=== PATIENT | female | born 1985 | race Caucasian/White ===

== ENCOUNTER 2017-07-02 20:03 | Emergency (ER) | payer BC, MEDICAID ==
[2017-07-02] MEDS ORDERED: BUPIVACAINE HCL 0.5 % INJ/PF 30 ML SDV INJ ONE (21:32)
[2017-07-02] MEDS ORDERED: LIDOCAINE 1% INJ (10 MG/ML) 10 ML MDV INJ ONE (21:34)
[2017-07-02] MEDS ORDERED: PENICILLIN V POTASSIUM 500 MG TABLET PO ONE (21:36)
[2017-07-02] MEDS ORDERED: HYDROCODONE/ACETAMINOPHEN 5-325 MG (6 TAB/ER DISP) PO PRN (22:08)
--- NOTE | 2017-07-02 22:14 | ER Document Report ---
HPI - HPI Onset: This afternoon Onset/Duration: Persistent Quality of pain: Throbbing Severity: Severe Pain Level: 5 Notes: Patient is a 32-year-old female who presents to the emergency department with complaint of toothache. Patient states that the pain on her right lower jaw at her last tooth. Patient reports that this pain started this afternoon. Patient denies any other symptoms such as fever chills. Patient denies any significant past medical history. Patient does report that she has had lots of dental caries in the past and has had several teeth removed due to all of the caries. - CONSTITUTIONAL Constitutional: DENIES: Fever, Chills - REPRODUCTIVE LMP: 07/01/2017 Reproductive: DENIES: : Past Medical History - General Information source: Patient - Social History Smoking Status: Unknown if Ever Smoked Family History: Reviewed & Not Pertinent Patient has suicidal ideation: No Patient has homicidal ideation: No - Past Medical History Cardiac Medical History: Reports: Hx Hypertension Denies: Hx Coronary Artery Disease Pulmonary Medical History: Denies: Hx Asthma Endocrine Medical History: Denies: Hx Diabetes Mellitus Type 1, Hx Diabetes Mellitus Type 2 Renal/ Medical History: Denies: Hx Peritoneal Dialysis Past Surgical History: Reports: Hx Adenoidectomy, Hx Tonsillectomy, Hx Tubal Ligation - 2007 - Immunizations Hx Diphtheria, Pertussis, Tetanus Vaccination: Yes Vertical Provider Document - INFECTION CONTROL TRAVEL OUTSIDE OF THE [place] IN LAST 30 DAYS: No Course - Re-evaluation Re-evalutation: Alveolar dental block was performed using 1.5 mL's of 0.5% Marcaine and 1.5 mL' s of 1% lidocaine. Patient tolerated the procedure well. Patient will be started on oral antibiotics, will give some medications for pain control, patient states that she has adequate follow-up with a dentist and can make an appointment next week for possible extraction of the affected tooth. - Vital Signs Vital signs: Temp Pulse Resp BP Pulse Ox 99.1 F 64 16 150/96 H 99 07/02/17 20:23 07/02/17 20:23 07/02/17 20:23 07/02/17 20:23 07/02/17 20:23 Discharge - Discharge Clinical Impression: Tooth ache Condition: Stable Disposition: HOME, SELF-CARE Instructions: Penicillin V K ([facility]), Toothache ([facility]) Prescriptions: Penicillin V Potassium [Penicillin Vk 500 mg Tablet] 500 mg PO BID #20 tablet Referrals: FABIAN CANCHOLA, LASER CUTTER-C [Primary Care Provider] - Follow up as needed
[2017-07-02 22:26] VITALS: BP 136/93
== END 2017-07-02 22:26 | disposition home or self-care (01) ==
LOC: ER 20:03
PROC: 3E0T3BZ Introduction of Anesthetic Agent into Peripheral Nerves and Plexi, Percutaneous Approach (ICD-10-PCS; principal; 2017-07-02)
DX: K08.9 Disorder of teeth and supporting structures, unspecified (principal); I10 Essential (primary) hypertension
CPT/HCPCS: 99282

== ENCOUNTER 2017-07-04 00:12 | Emergency (ER) | payer BC ==
[2017-07-04 01:25] VITALS: BP 176/97
[2017-07-04] MEDS ORDERED: OXYCODONE-ACETAMINOPHEN 5-325 MG TABLET PO ONE (02:28)
[2017-07-04] MEDS ORDERED: CLINDAMYCIN HCL 150 MG CAPSULE PO ONE (02:29)
--- NOTE | 2017-07-04 02:36 | ER Document Report ---
HPI - HPI Pain Level: 5 Notes: Patient presents to emergency department with complaint of right lower tooth pain. Patient was seen in this department 24 hours ago with same complaint. Patient was given alveolar dental block with minimal relief. Patient was also started on penicillin. Patient states that she is continuing to have a throbbing pain. Patient reports that she will not be able to get into see a dentist for a few days. Patient also reports that she has taken 2 doses of her. - ROS ROS below otherwise negative: Yes - CONSTITUTIONAL Constitutional: DENIES: Fever, Chills - EENT EENT: DENIES: Sore Throat, Ear Pain, Eye problems - NEURO Neurology: DENIES: Headache, Weakness, Vision blurred, Dizzinesss / Vertigo - CARDIOVASCULAR Cardiovascular: DENIES: Chest pain - RESPIRATORY Respiratory: DENIES: Trouble Breathing, Coughing - GASTROINTESTINAL Gastrointestinal: DENIES: Abdominal Pain, Black / Bloody Stools - URINARY Urinary: DENIES: Dysuria, Urgency, Frequency - REPRODUCTIVE Reproductive: DENIES: : - MUSCULOSKELETAL Musculoskeletal: DENIES: Extremity pain Past Medical History - General Information source: Patient - Social History Smoking Status: Unknown if Ever Smoked Family History: Reviewed & Not Pertinent Patient has suicidal ideation: No Patient has homicidal ideation: No - Past Medical History Cardiac Medical History: Reports: Hx Hypertension Denies: Hx Coronary Artery Disease Pulmonary Medical History: Denies: Hx Asthma Endocrine Medical History: Denies: Hx Diabetes Mellitus Type 1, Hx Diabetes Mellitus Type 2 Renal/ Medical History: Denies: Hx Peritoneal Dialysis Past Surgical History: Reports: Hx Adenoidectomy, Hx Tonsillectomy, Hx Tubal Ligation - Immunizations Hx Diphtheria, Pertussis, Tetanus Vaccination: Yes Vertical Provider Document - CONSTITUTIONAL Exam Limitations: No Limitations - INFECTION CONTROL TRAVEL OUTSIDE OF THE [place] IN LAST 30 DAYS: No - NECK Neck: Normal Inspection - RESPIRATORY Respiratory: Breath Sounds Normal - CARDIOVASCULAR Cardiovascular: Regular Rate, Regular Rhythm - MUSCULOSKELETAL/EXTREMETIES Musculoskeletal/Extremeties: MAEW - NEURO Level of Consciousness: Awake, Alert Course - Re-evaluation Re-evalutation: Patient will be given single dose of pain medication while in department. Will start patient on clindamycin. Patient given information dental providers in the area as well as the new dental urgent care in [place]. Patient understands that ultimately she needs to follow-up with a dentist to probably have an extraction of the affected tooth. It does not appear to be any drainable abscess at this time. - Vital Signs Vital signs: Temp Pulse Resp BP Pulse Ox 98.7 F 69 20 176/97 H 97 07/04/17 01:24 07/04/17 01:24 07/04/17 01:24 07/04/17 01:24 07/04/17 01:24 Discharge - Discharge Clinical Impression: Pain due to dental caries Condition: Stable Disposition: HOME, SELF-CARE Instructions: [facility], Clindamycin ([facility]), Toothache ([facility]) Additional Instructions: Toothache Your pain is due to dental decay. The tooth must be repaired in order for you to feel better. You will, therefore, be referred to a dentist. Severe swelling or drainage around a tooth usually means a deep dental abscess. This also requires evaluation and treatment by the dentist, but antibiotics may be prescribed while awaiting dental treatment. You should be rechecked immediately if you develop major swelling of the face, increasing pain, a lump in the jaw or gums, headache, or fever. Please follow up with your dentist Wednesday morning. There is a new Urgent Dental Care in [place] that may be available as well. Prescriptions: Clindamycin HCl 300 mg PO BID #14 capsule Referrals: FABIAN CANCHOLA, ENVIRONMENTAL ENGINEER-C [Primary Care Provider] - Follow up as needed
== END 2017-07-04 02:53 | disposition home or self-care (01) ==
LOC: ER 00:12
DX: K08.89 Other specified disorders of teeth and supporting structures (principal); K02.9 Dental caries, unspecified; I10 Essential (primary) hypertension
CPT/HCPCS: 99282

== ENCOUNTER 2017-09-07 19:30 | Emergency (ER) | payer SELFPAY ==
[2017-09-07 19:59] VITALS: BP 134/74
[2017-09-07] MEDS ORDERED: CIPROFLOXACIN-HC OTIC SUSP 10 ML AD ONE (22:02)
--- NOTE | 2017-09-07 22:08 | ER Document Report ---
ED ENT - General Chief Complaint: R ear pain Stated Complaint: EAR PAIN Time Seen by Provider: 09/07/17 22:01 Mode of Arrival: Ambulatory Information source: Patient Notes: Patient is a 32 year female who presents with right ear pain 2-3 days. Patient reports that she has been in a swimming pool frequently over the last few weeks. Patient denies any drainage from the ear. TRAVEL OUTSIDE OF THE [place] IN LAST 30 DAYS: No - Related Data Allergies/Adverse Reactions: No Known Allergies Allergy (Verified 07/02/17 21:14) Past Medical History - General Information source: Patient - Social History Smoking Status: Never Smoker Chew tobacco use (# tins/day): No Frequency of alcohol use: None Drug Abuse: None Family History: Reviewed & Not Pertinent Patient has suicidal ideation: No Patient has homicidal ideation: No - Past Medical History Cardiac Medical History: Reports: Hx Hypertension Denies: Hx Coronary Artery Disease Pulmonary Medical History: Denies: Hx Asthma Endocrine Medical History: Denies: Hx Diabetes Mellitus Type 1, Hx Diabetes Mellitus Type 2 Renal/ Medical History: Denies: Hx Peritoneal Dialysis Past Surgical History: Reports: Hx Adenoidectomy, Hx Tonsillectomy, Hx Tubal Ligation - Immunizations Hx Diphtheria, Pertussis, Tetanus Vaccination: Yes Review of Systems - Review of Systems Constitutional: No symptoms reported EENT: See HPI Cardiovascular: No symptoms reported Respiratory: No symptoms reported Gastrointestinal: No symptoms reported Genitourinary: No symptoms reported Female Genitourinary: No symptoms reported Musculoskeletal: No symptoms reported Skin: No symptoms reported Hematologic/Lymphatic: No symptoms reported Neurological/Psychological: No symptoms reported Physical Exam - Vital signs Vitals: Temp Pulse Resp BP Pulse Ox 98.7 F 71 20 134/74 H 100 09/07/17 19:57 09/07/17 19:57 09/07/17 19:57 09/07/17 19:57 09/07/17 19:57 - Notes Notes: PHYSICAL EXAMINATION: GENERAL: Well-appearing, well-nourished and in no acute distress. HEAD: Atraumatic, normocephalic. EYES: Pupils equal round and reactive to light, extraocular movements intact, conjunctiva are normal. ENT: Nares patent, oropharynx clear without exudates. Moist mucous membranes. Swelling and erythema to right ear canal, TM normal. Left ear canal and TM unremarkable. NECK: Normal range of motion, supple without lymphadenopathy LUNGS: Breath sounds clear to auscultation bilaterally and equal. No wheezes rales or rhonchi. HEART: Regular rate and rhythm without murmurs Musculoskeletal: Normal range of motion, no pitting or edema. No cyanosis. NEUROLOGICAL: Cranial nerves grossly intact. Normal speech, normal gait. Normal sensory, motor exams PSYCH: Normal mood, normal affect. SKIN: Warm, Dry, normal turgor, no rashes or lesions noted. Course - Re-evaluation Re-evalutation: 32-year-old female patient presenting with chief complaint of right ear pain and no other symptoms. Patient's examination is consistent with otitis externa. Will start patient on Ciprodex. - Vital Signs Vital signs: Temp Pulse Resp BP Pulse Ox 98.7 F 71 20 134/74 H 100 09/07/17 19:57 09/07/17 19:57 09/07/17 19:57 09/07/17 19:57 09/07/17 19:57 Discharge - Discharge Clinical Impression: Otitis externa Qualifiers: Otitis externa type: unspecified type Chronicity: acute Laterality: right Qualified Code(s): H60.501 - Unspecified acute noninfective otitis externa, right ear Condition: Stable Disposition: HOME, SELF-CARE Additional Instructions: Otitis Externa You have otitis externa -- an infection of the outer ear canal. This can be very painful. It's sometimes called "swimmer's ear," because it often occurs after prolonged water exposure. Many things, such as earwax and dirt in the ear, can contribute to it. The usual treatment is antibiotic/antiinflammatory ear drops. Occasionally , a wick will be placed in the ear to draw in the medicine. If the infection is severe, an oral antibiotic may be prescribed. Pain medication is often needed. Avoid getting water in the ear. Outer ear infections often take longer to heal than you might expect. Some tenderness and ache in the ear may persist for about two weeks. See your physician if you fail to improve as expected. Call the doctor at once if you develop fever, increasing swelling (particularly if it makes your ear "poke out"), severe headache, stiff neck, or decreased hearing. Please take the Ciprodex as prescribed. Place 4 drops into the affected ear twice daily for the next 10 days. Please follow-up with your primary care doctor if not improving. Prescriptions: Ciprofloxacin HCl/Dexameth [Ciprodex Otic Suspension 7.5 ml Bottle] 4 drop OT BID #1 bottle Referrals: FABIAN CANCHOLA FNP-C [COMMUNITY BASED STAFF] - Follow up as needed
[2017-09-07] MEDS ORDERED: CIPROFLOXACIN-HC OTIC SUSP 10 ML ONE (22:26)
== END 2017-09-07 22:39 | disposition home or self-care (01) ==
LOC: ER 19:30
DX: H60.501 Unspecified acute noninfective otitis externa, right ear (principal); I10 Essential (primary) hypertension; Z98.51 Tubal ligation status
CPT/HCPCS: 99282; J3490

== ENCOUNTER 2017-10-04 10:13 | Emergency (ER) | payer SELFPAY ==
[2017-10-04 10:20] VITALS: BP 136/88
--- NOTE | 2017-10-04 10:43 | ER Document Report ---
HPI - HPI Patient complains to provider of: congestion Onset: Other - 1 month Pain Level: 4 Context: 32 yo female c/o nasal congestion ear fullness bilateral and sinus congestion for 1 month. No cough. No fever. Associated Symptoms: None Exacerbated by: Denies Relieved by: Denies - ROS ROS below otherwise negative: Yes Systems Reviewed and Negative: Yes All other systems reviewed and negative - REPRODUCTIVE Reproductive: DENIES: : Past Medical History - General Information source: Patient - Social History Smoking Status: Current Every Day Smoker Frequency of alcohol use: None Drug Abuse: None Lives with: Family Family History: Reviewed & Not Pertinent - Past Medical History Cardiac Medical History: Reports: Hx Hypertension Renal/ Medical History: Denies: Hx Peritoneal Dialysis Past Surgical History: Reports: Hx Adenoidectomy, Hx Tonsillectomy, Hx Tubal Ligation - Immunizations Hx Diphtheria, Pertussis, Tetanus Vaccination: Yes Vertical Provider Document - CONSTITUTIONAL Agree With Documented VS: Yes Exam Limitations: No Limitations General Appearance: No Apparent Distress - INFECTION CONTROL TRAVEL OUTSIDE OF THE [place] IN LAST 30 DAYS: No - HEENT HEENT: Normocephalic. negative: Pharyngeal Erythema, Tympanic Membrane Red, Tympanic Membrane Bulging Notes: nasal congestion, max sinus tender justus - NECK Neck: Supple. negative: Lymphadenopathy-Left, Lymphadenopathy-Right - RESPIRATORY Respiratory: Breath Sounds Normal, No Respiratory Distress - CARDIOVASCULAR Cardiovascular: Regular Rate, Regular Rhythm - NEURO Level of Consciousness: Alert - DERM Integumentary: No Rash Course - Vital Signs Vital signs: Temp Pulse Resp BP Pulse Ox 98.9 F 72 16 136/88 H 98 10/04/17 10:19 10/04/17 10:19 10/04/17 10:19 10/04/17 10:19 10/04/17 10:19 Discharge - Discharge Clinical Impression: Sinusitis Qualifiers: Sinusitis location: maxillary Chronicity: acute Recurrence: non-recurrent Qualified Code(s): J01.00 - Acute maxillary sinusitis, unspecified Condition: Good Disposition: HOME, SELF-CARE Instructions: Augmentin ([facility]), Sinusitis ([facility]), Warm Packs ([facility]) Additional Instructions: [id number] Mucinex decongestant with antihistamine as directed Warm compress to your sinuses Augmentin for antibiotics Follow-up ears nose and throat doctor Prescriptions: Amoxicillin/Potassium Clav [Augmentin 875-125 Tablet] 1 each PO BID #20 tablet Referrals: RIN ARAUJO DO [ASSOCIATE] - Follow up as needed
== END 2017-10-04 11:31 | disposition home or self-care (01) ==
LOC: ER 10:13
DX: J01.00 Acute maxillary sinusitis, unspecified (principal); I10 Essential (primary) hypertension; F17.200 Nicotine dependence, unspecified, uncomplicated
CPT/HCPCS: 99282

== ENCOUNTER 2018-07-14 09:23 | Emergency (ER) | payer SELFPAY ==
--- NOTE | 2018-07-14 12:19 | ER Document Report ---
ED GI/ - General Chief Complaint: Abdominal Pain Stated Complaint: RIGHT SIDE ABDOMINAL PAIN Time Seen by Provider: 07/14/18 12:10 Mode of Arrival: Ambulatory Information source: Patient TRAVEL OUTSIDE OF THE U.[place]. IN LAST 30 DAYS: No - HPI Patient complains to provider of: Abdominal pain Notes: 07/14/18 12:17 Patient is here with complaints of right-sided abdominal pain. Pain is been present for the last 6 days. The pain has been intermittent and sharp in nature but over the last few days become more constant. Nothing makes the pain better or worse. She has had nausea, but denies any vomiting. Over the last 2 days s he has had some mild diarrhea. No blood in her stool. No dysuria or hematuria. Last normal menstrual period was last week and normal. She has had prior tubal ligation, no other abdominal surgeries. She denies fever. No rash. No chest pain or shortness of breath. No vaginal bleeding or vaginal discharge. She denies any other complaints at this time. - Related Data Allergies/Adverse Reactions: No Known Allergies Allergy (Verified 07/14/18 09:49) Past Medical History - Social History Smoking Status: Unknown if Ever Smoked Family History: Reviewed & Not Pertinent - Past Medical History Cardiac Medical History: Reports: Hx Hypertension Denies: Hx Coronary Artery Disease Pulmonary Medical History: Denies: Hx Asthma Endocrine Medical History: Denies: Hx Diabetes Mellitus Type 1, Hx Diabetes Mellitus Type 2 Renal/ Medical History: Denies: Hx Peritoneal Dialysis Past Surgical History: Reports: Hx Adenoidectomy, Hx Tonsillectomy, Hx Tubal Ligation - Immunizations Hx Diphtheria, Pertussis, Tetanus Vaccination: Yes Review of Systems - Review of Systems -: Yes All other systems reviewed and negative Physical Exam - Vital signs Vitals: Temp Pulse Resp BP Pulse Ox 98.7 F 66 16 143/90 H 100 07/14/18 09:55 07/14/18 09:55 07/14/18 09:55 07/14/18 09:55 07/14/18 09:55 - Notes Notes: GENERAL: alert, cooperative, nontoxic, no distress. HEAD: normocephalic, atraumatic EYES: conjunctiva pink without discharge, no external redness or swelling. EARS: no external swelling, no external redness NOSE: atraumatic, no external swelling MOUTH/THROAT: mucous membranes moist and pink, posterior pharynx without erythema, swelling, exudate. No trismus or drooling. NECK: soft, supple, full range of motion, no meningismus. CHEST: no distress, lungs clear and equal throughout. No wheezing, rales, rhonchi. CARDIAC: regular rate and rhythm, no murmur, normal capillary refill, normal pulses. No peripheral edema noted. ABDOMEN: Soft, obese abdomen. Tenderness to palpation of the right upper and right mid abdomen. No rebound tenderness or guarding. BACK: full range of motion, no CVA tenderness. EXTREMITIES: full range of motion of all extremities. No redness, no swelling. NEURO: alert and oriented x 3, no focal deficits, full range of motion of all extremities. PYSCH: appropriate mood, affect. Patient is cooperative. SKIN: pink, warm, dry, no rash. Course - Re-evaluation Re-evalutation: 07/14/18 17:39 Patient continues to have right-sided abdominal pain. White counts normal, LFTs normal, lipase normal, urinalysis normal, negative . Ultrasound shows gallstones and fatty infiltration of the liver with no obvious acute abnormality. Due to the fact that the patient continues to have right-sided abdominal pain, saline lock is been ordered and and CT of the abdomen and pelvis with IV contrast. We will continue to monitor. Patient has been updated. 07/14/18 20:14 Patient nontoxic-appearing with stable vitals. Patient here with complaints of right upper quadrant and right side pain. Labs are all unremarkable. Ultrasound shows gallstones and fatty infiltration of liver. CT the abdomen pelvis shows potential gallstones with a right-sided ovarian cyst. This point the patient is benign. have low suspicion for acute cholecystitis, pancreatitis or other serious cause of her pain. Patient will be discharged home with prescription for pain medication, surgery referral due to her gallstones and right upper quadrant pain, instructions to follow-up with her primary care doctor or her PHYSICIAN SURGEON for further evaluation of the right ovarian cyst, and to follow-up sooner if she develops worsening pain, high fever, persistent vomiting, or has any further concerns. - Vital Signs Vital signs: Temp Pulse Resp BP Pulse Ox 98.4 F 62 16 138/88 H 100 07/14/18 19:45 07/14/18 19:45 07/14/18 19:45 07/14/18 19:45 07/14/18 19:45 - Laboratory Result Diagrams: 07/14/18 12:00 07/14/18 12:00 Laboratory results interpreted by me: 07/14/18 07/14/18 12:00 12:00 MCV 78 L MCH 26.3 L RDW 15.1 H Urine Ketones TRACE H - Diagnostic Test Radiology reviewed: Image reviewed, Reports reviewed - Ultrasound right upper quadrant shows gallstones, fatty infiltration of liver. CT the abdomen pelvis with IV contrast shows gallstones, right ovarian cyst, no other acute abnormality. Discharge - Discharge Clinical Impression: Gallstones Abdominal pain Qualifiers: Abdominal location: unspecified location Qualified Code(s): R10.9 - Unspecified abdominal pain Ovarian cyst Qualifiers: Laterality: right Qualified Code(s): N83.201 - Unspecified ovarian cyst, right side Condition: Stable Disposition: HOME, SELF-CARE Instructions: Abdominal Pain ([facility]), Gallbladder Disease ([facility]), Ovarian Cyst ([facility]) Additional Instructions: Take medication as prescribed. Drink plenty fluids. Follow-up with surgery at the next available appointment regarding her gallstones. Follow-up with your primary care doctor or PHYSICIAN SURGEON regarding the right sided ovarian cyst. Return the emergency department for worsening pain, high fever, persistent vomiting, or for any further concerns. Prescriptions: Tramadol HCl [Ultram 50 mg Tablet] 50 mg PO Q6HP PRN #12 tablet PRN Reason: Naproxen [Naprosyn] 500 mg PO BID #20 tablet Ondansetron HCl [Zofran 4 mg Tablet] 1 tab PO Q4H PRN #10 tablet PRN Reason: Forms: Elevated Blood Pressure, Smoking Cessation Education Referrals: SALEEM HECK MD [OIL WELL CABLE TOOL DRILLER] - Follow up as needed SUN AGUILAR MD [ACTIVE STAFF] - Follow up as needed [facility] [Provider Group] - Follow up as needed
[2018-07-14 12:49] LABS: ABSOLUTE EOSINOPHILS # (AUTO) 0.1 10^3/uL (0.0-0.6); ABSOLUTE MONOCYTES (AUTO) 0.5 10^3/uL (0.1-1.4); ABSOLUTE NEUT (AUTO) 6.6 10^3/uL (1.7-8.2); BASOPHILS % (AUTO) 0.4 % (0-2); EOSINOPHILS % (AUTO) 1.5 % (0-6); HEMATOCRIT 37.2 % (36.0-47.0); HEMOGLOBIN 12.5 g/dL (12.0-15.5); LYMPHOCYTES % (AUTO) 21.3 % (13-45); MEAN CORPUSCULAR HEMOGLOBIN 26.3 pg (27.0-33.4); MEAN CORPUSCULAR HGB CONC 33.6 g/dL (32.0-36.0); MEAN CORPUSCULAR VOLUME 78 fl (80-97); MONOCYTES % (AUTO) 5.3 % (3-13); PLATELET COUNT 376 10^3/uL (150-450); RED BLOOD COUNT 4.75 10^6/uL (3.72-5.28); RED CELL DISTRIBUTION WIDTH 15.1 % (11.5-14.0); SEGMENTED NEUTROPHILS % (AUTO) 71.5 % (42-78); TOTAL CELLS COUNTED % (AUTO) 100 %; WHITE BLOOD COUNT 9.3 10^3/uL (4.0-10.5)
[2018-07-14 12:52] LABS: APPEARANCE,URINE SLIGHTLY-CLOUDY; BILIRUBIN,URINE NEGATIVE (NEGATIVE); COLOR,URINE YELLOW; GLUCOSE, URINE NEGATIVE (NEGATIVE); KETONES,URINE TRACE mg/dL (NEGATIVE); LEUKOCYTE ESTERASE,URINE NEGATIVE (NEGATIVE); NITRITE,URINE NEGATIVE (NEGATIVE); PROTEIN,URINE NEGATIVE (NEGATIVE); URINE SPECIFIC GRAVITY 1.029; UROBILINOGEN,URINE NEGATIVE mg/dL (<2.0)
[2018-07-14 13:14] LABS: ALANINE AMINOTRANSFERASE 32 U/L (9-52); ALBUMIN 4.4 g/dL (3.5-5.0); ALKALINE PHOSPHATASE 68 U/L (38-126); ANION GAP 9 (5-19); ASPARTATE AMINO TRANSFERASE 19 U/L (14-36); BILIRUBIN,DIRECT 0.2 mg/dL (0.0-0.4); BILIRUBIN,TOTAL 0.6 mg/dL (0.2-1.3); BLOOD UREA NITROGEN 12 mg/dL (7-20); CALCIUM 9.7 mg/dL (8.4-10.2); CARBON DIOXIDE 28 mmol/L (22-30); CHLORIDE 104 mmol/L (98-107); GLUCOSE 93 mg/dL (75-110); LIPASE 111.6 U/L (23-300); POTASSIUM 4.3 mmol/L (3.6-5.0); SODIUM 141.1 mmol/L (137-145); TOTAL PROTEIN 7.1 g/dL (6.3-8.2)
--- NOTE | 2018-07-14 17:07 | RADIOLOGY REPORT (SQ) ---
EXAM DESCRIPTION: U/S ABDOMEN LIMITED W/O DOP COMPLETED DATE/TIME: 07/14/2018 4:55 pm REASON FOR STUDY: ruq pain COMPARISON: None. TECHNIQUE: Dynamic and static grayscale images acquired of the abdomen and recorded on PACS. Additio rubén selected color Doppler and spectral images recorded. LIMITATIONS: None. FINDINGS: PANCREAS: No masses. No peripancreatic edema or fluid collections. LIVER: Echotexture is coarse with increased echogenicity consistent with fatty infiltration. LIVER VASCULATURE: Normal directional flow of the main portal vein and hepatic veins. GALLBLADDER: Small stones. Normal wall thickness. No pericholecystic fluid. ULTRASOUND-DETECTED DEMPSEY'S SIGN: Negative. INTRAHEPATIC DUCTS AND COMMON DUCT: CBD and intrahepatic ducts normal caliber. No filling defects. INFERIOR VENA CAVA: Normal flow. AORTA: No aneurysm. RIGHT KIDNEY: Normal size. Normal echogenicity. No solid or suspicious masses. No hydronephrosis. No calcifications. PERITONEAL AND RIGHT PLEURAL SPACE: No ascites or effusions. OTHER: No other significant finding. IMPRESSION: FATTY INFILTRATION OF THE LIVER. Cholelithiasis. No acute inflammatory changes. . TECHNICAL DOCUMENTATION: JOB ID: [id number] [place]-72 2010 [employer]- All Rights Reserved Reading location - IP/workstation name: [employer]
--- NOTE | 2018-07-14 20:10 | RADIOLOGY REPORT (SQ) ---
EXAM DESCRIPTION: CT ABDOMEN PELVIS WITH IV CONTRAST COMPLETED DATE/TME: 07/14/2018 17:38 CLINICAL HISTORY: 33 years, Female, RIGHT ABDO PAIN COMPARISON: None. TECHNIQUE: CT of the abdomen and pelvis was performed following intravenous administration of contrast. Oral contrast was not administered. Multiplanar reformatted images were provided. This exam was performed according to our departmental dose optimization program which includes use of automated exposure control, adjustment of the mA and/or kV according to patient size and/or use of iterative reconstruction technique. Images stored on PACS. All CT scanners at this facility use dose modulation, iterative reconstruction, and/or weight based dosing when appropriate to reduce radiation dose to as low as reasonably achievable (ALARA). [facility]: Dose Right [facility]: CareDose [facility]: Dose Right [facility]: Teradose 4D [facility]: VILOOP LIMITATIONS: None. FINDINGS: Chest: Evaluation through the lung bases reveals no focal opacity, pleural effusion or pneumothorax. Heart size is within normal limits. No pericardial effusion. Abdomen and pelvis: The liver, gallbladder, pancreas, spleen, bilateral kidneys and bilateral adrenal glands are within normal limits. High density within the dependent gallbladder may reflect small gallstones. The vessels are patent and normal in caliber. No abdominopelvic lymph nodes are noted to be pathologically enlarged by CT measurement criteria. The bowel is within normal limits without abnormal bowel wall thickness or bowel dilation. No free air. No free abdominopelvic fluid collections. The appendix is within normal limits. The uterus is within normal limits of a contrast-enhanced CT examination. Left-sided adnexal clip is identified. A right-sided adnexal fluid is not identified. Hypoattenuating structure in the region of the LEFT adnexa measures 26 mm raising the possibility of adnexal cyst. The osseous structures are within normal limits. IMPRESSION: 1. No specific acute intra-abdominal findings are noted to suggest etiology of the patient's abdominal pain. 2. High density within the dependent gallbladder may reflect small gallstones. 3. 2.6 cm benign appearing ovarian cyst. No follow-up imaging is recommended. Reference: J Am Lnua Radiol 2013;10:675-681 TECHNICAL DOCUMENTATION: Quality ID # [id number]: Final reports with documentation of one or more dose reduction techniques (e.g., Automated exposure control, adjustment of the mA and/or kV according to patient size, use of iterative reconstruction technique) copyright 2011 [employer]- All Rights Reserved
[2018-07-14 20:45] VITALS: BP 140/85
== END 2018-07-14 20:32 | disposition home or self-care (01) ==
LOC: ER 09:23
DX: K80.20 Calculus of gallbladder without cholecystitis without obstruction (principal); N83.201 Unspecified ovarian cyst, right side; K76.0 Fatty (change of) liver, not elsewhere classified; R11.0 Nausea; R19.7 Diarrhea, unspecified; Z98.51 Tubal ligation status; I10 Essential (primary) hypertension
CPT/HCPCS: 36415; 74177; 76705; 80053; 81001; 83690; 84702; 85025; 99284

== ENCOUNTER 2019-07-06 17:05 | Emergency (ER) | payer MEDICAID ==
[2019-07-06] MEDS ORDERED: ASPIRIN 81 MG TABLET, CHEWABLE PO ONE (17:27)
--- NOTE | 2019-07-06 17:29 | ER Document Report ---
ED Medical Screen (RME) - General Chief Complaint: Chest Pain Stated Complaint: CHEST PAIN Time Seen by Provider: 07/06/19 17:21 TRAVEL OUTSIDE OF THE [place] IN LAST 30 DAYS: No - HPI Notes: 07/06/19 17:27 34-year-old female presents emergency room for complaints of chest pain with feeling like she is short of breath that started around lunchtime today and went away after about 20 to 30 minutes. Patient is a non-smoker. Patient reports that her mother had heart attack at age 58. Patient reports that her chest pain was substernal when she was experiencing it. Has a history of a heart murmur. Reports numbness and tingling in her hand and legs that is been occurring for weeks and she just started a job at [employer] where she states she stands a lot. I have greeted and performed a rapid initial assessment of this patient. A comprehensive ED assessment and evaluation of the patient, analysis of test results and completion of the medical decision making process will be conducted by additional ED providers. PHYSICAL EXAMINATION: GENERAL: Well-appearing, well-nourished and in no acute distress. CV: s1, s2 regular LUNGS: No respiratory distress Musculoskeletal: Normal range of motion NEUROLOGICAL: Normal speech, normal gait. SKIN: Warm, Dry, normal turgor, no rashes or lesions noted. - Related Data Allergies/Adverse Reactions: No Known Allergies Allergy (Verified 07/14/18 09:49) Past Medical History - Past Medical History Cardiac Medical History: Reports: Hx Hypertension Denies: Hx Coronary Artery Disease Pulmonary Medical History: Denies: Hx Asthma Endocrine Medical History: Denies: Hx Diabetes Mellitus Type 1, Hx Diabetes Mellitus Type 2 Renal/ Medical History: Denies: Hx Peritoneal Dialysis Past Surgical History: Reports: Hx Adenoidectomy, Hx Tonsillectomy, Hx Tubal Ligation - Immunizations Hx Diphtheria, Pertussis, Tetanus Vaccination: Yes Physical Exam - Vital signs Vitals: Temp Pulse Resp BP Pulse Ox 99.2 F 63 16 154/93 H 100 07/06/19 17:15 07/06/19 17:15 07/06/19 17:15 07/06/19 17:15 07/06/19 17:15 Course - Vital Signs Vital signs: Temp Pulse Resp BP Pulse Ox 99.2 F 63 16 154/93 H 100 07/06/19 17:18 07/06/19 17:15 07/06/19 17:15 07/06/19 17:15 07/06/19 17:15
[2019-07-06 17:47] LABS: ABSOLUTE EOSINOPHILS # (AUTO) 0.2 10^3/uL (0.0-0.6); ABSOLUTE LYMPHOCYTES (AUTO) 1.8 10^3/uL (0.5-4.7); ABSOLUTE MONOCYTES (AUTO) 0.6 10^3/uL (0.1-1.4); ABSOLUTE NEUT (AUTO) 6.4 10^3/uL (1.7-8.2); BASOPHILS % (AUTO) 0.5 % (0-2); EOSINOPHILS % (AUTO) 1.7 % (0-6); HEMATOCRIT 33.7 % (36.0-47.0); HEMOGLOBIN 11.5 g/dL (12.0-15.5); LYMPHOCYTES % (AUTO) 20.3 % (13-45); MEAN CORPUSCULAR HEMOGLOBIN 26.7 pg (27.0-33.4); MEAN CORPUSCULAR HGB CONC 34.1 g/dL (32.0-36.0); MEAN CORPUSCULAR VOLUME 78 fl (80-97); MONOCYTES % (AUTO) 6.5 % (3-13); PLATELET COUNT 311 10^3/uL (150-450); RED BLOOD COUNT 4.29 10^6/uL (3.72-5.28); RED CELL DISTRIBUTION WIDTH 15.2 % (11.5-14.0); TOTAL CELLS COUNTED % (AUTO) 100 %
--- NOTE | 2019-07-06 17:51 | RADIOLOGY REPORT (SQ) ---
EXAM DESCRIPTION: CHEST SINGLE VIEW IMAGES COMPLETED DATE/TIME: 07/06/2019 5:39 pm REASON FOR STUDY: chest pain COMPARISON: 06/27/2015. EXAM PARAMETERS: NUMBER OF VIEWS: One view. TECHNIQUE: Single frontal radiographic view of the chest acquired. RADIATION DOSE: NA LIMITATIONS: None. FINDINGS: LUNGS AND PLEURA: No opacities, masses or pneumothorax. No pleural effusion. MEDIASTINUM AND HILAR STRUCTURES: No masses. Contour normal. HEART AND VASCULAR STRUCTURES: Heart normal in size. Normal vasculature. BONES: No acute findings. HARDWARE: None in the chest. OTHER: No other significant finding. IMPRESSION: NO ACUTE RADIOGRAPHIC FINDING IN THE CHEST. TECHNICAL DOCUMENTATION: JOB ID: [id number] 2010 [employer]- All Rights Reserved Reading location - IP/workstation name: [email or web address]
--- NOTE | 2019-07-06 17:55 | ER Document Report ---
ED General - General Chief Complaint: Chest Pain Stated Complaint: CHEST PAIN Time Seen by Provider: 07/06/19 17:21 Primary Care Provider: DARRYL HUMMEL MD [ACTIVE STAFF] - Follow up as needed GABRIELA KELLY MD [ACTIVE STAFF] - Follow up as needed CLIFTON RAMIREZ MD [EMERITUS] - Follow up as needed Mode of Arrival: Ambulatory Information source: Patient Notes: 34-year-old morbidly obese female presents emergency department with complaints of chest heaviness. Patient reports she has worked from home for many years. She reports she recently started working at [employer]. She is not used to being on her feet as much as she has been since starting work at [employer]. She reports for the past week her left leg was having a warm feeling with shots of pain and numbness in the thigh. She reports her right arm has some numbness on and off for the past week. She reports at lunchtime today she had some heaviness in the center of her chest. She reports it really was not a pain. She reports it was just a heaviness. She reports it lasted for approximately 35 minutes. She denies shortness of breath, nausea diaphoresis vomiting or diarrhea. Denies history of cardiac disease but reports her mother had a heart attack when she was 57 years old. She reports she does not know why her mother had a heart attack she just never went to the doctors. Patient denies smoking drinking drugs. She denies chest pain at this time. TRAVEL OUTSIDE OF THE [place] IN LAST 30 DAYS: No - HPI Onset: Just prior to arrival Onset/Duration: Sudden Associated symptoms: None Exacerbated by: Denies Relieved by: Denies Similar symptoms previously: No Recently seen / treated by doctor: No - Related Data Allergies/Adverse Reactions: No Known Allergies Allergy (Verified 07/14/18 09:49) Past Medical History - General Information source: Patient Last Menstrual Period: current - Social History Smoking Status: Never Smoker Cigarette use (# per day): No Frequency of alcohol use: None Drug Abuse: None Occupation: [employer] Lives with: Family Family History: Reviewed & Not Pertinent Patient has homicidal ideation: No - Past Medical History Cardiac Medical History: Reports: Hx Hypertension Denies: Hx Coronary Artery Disease Pulmonary Medical History: Denies: Hx Asthma Endocrine Medical History: Denies: Hx Diabetes Mellitus Type 1, Hx Diabetes Mellitus Type 2 Renal/ Medical History: Denies: Hx Peritoneal Dialysis Past Surgical History: Reports: Hx Adenoidectomy, Hx Tonsillectomy, Hx Tubal Ligation - Immunizations Hx Diphtheria, Pertussis, Tetanus Vaccination: Yes Review of Systems - Review of Systems Notes: Review HPI for review of systems., All other systems negative Physical Exam - Vital signs Vitals: Temp Pulse Resp BP Pulse Ox 99.2 F 63 16 154/93 H 100 07/06/19 17:15 07/06/19 17:15 07/06/19 17:15 07/06/19 17:15 07/06/19 17:15 - General General appearance: Alert In distress: None - HEENT Head: Normocephalic Eyes: Normal Conjunctiva: Normal Extraocular movements intact: Yes Pupils: PERRL Pharynx: Normal. No: Erythema Neck: Normal, Supple. No: Lymphadenopathy - Respiratory Respiratory status: No respiratory distress Chest status: Nontender Breath sounds: Normal Chest palpation: Normal - Cardiovascular Rhythm: Regular Heart sounds: Normal auscultation Murmur: No - Abdominal Inspection: Normal Distension: No distension Bowel sounds: Normal Tenderness: Nontender Organomegaly: No organomegaly - Back Back: Normal, Nontender - Extremities General upper extremity: Normal ROM, Normal strength General lower extremity: Normal ROM, Normal strength. No: Edema Wrist: Normal. No: Limited ROM Hand: Normal, Other - Patient reports right hand wrist feels numb comes and goes. 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 - Neurological Neuro grossly intact: Yes Cognition: Normal Orientation: AAOx4 [place] Coma Scale Eye Opening: Spontaneous [place] Coma Scale Verbal: Oriented [place] Coma Scale Motor: Obeys Commands [place] Coma Scale Total: 15 Speech: Normal Motor strength normal: LUE, RUE, LLE, RLE Sensory: Normal - Psychological Associated symptoms: Normal affect, Normal mood - Skin Skin Temperature: Warm Skin Moisture: Dry Skin Color: Normal Course - Re-evaluation Re-evalutation: 07/06/19 18:23 This 34-year-old morbidly obese female presents with complaints of episode of chest heaviness that lasted approximately 35 minutes. Has family history of cardiac disease. Reports her mom had a TN at 58 years old. 07/06/19 19:50 Patient sleeping. Aroused easily to verbal stimuli. Denies pain. Updated on plan of care second troponin pending. She denies needs at this time. Chest X-Ray 07/06/19 17:22 IMPRESSION: NO ACUTE RADIOGRAPHIC FINDING IN THE CHEST. Laboratory 07/06/19 07/06/19 07/06/19 17:33 17:33 17:33 WBC 9.0 RBC 4.29 Hgb 11.5 L Hct 33.7 L MCV 78 L MCH 26.7 L MCHC 34.1 RDW 15.2 H Plt Count 311 Lymph % (Auto) 20.3 [place] % (Auto) 6.5 Eos % (Auto) 1.7 Baso % (Auto) 0.5 Absolute Neuts (auto) 6.4 Absolute Lymphs (auto) 1.8 Absolute Monos (auto) 0.6 Absolute Eos (auto) 0.2 Absolute Basos (auto) 0.0 Seg Neutrophils % 71.0 Sodium 138.9 Potassium 3.5 L Chloride 104 Carbon Dioxide 29 Anion Gap 6 BUN 15 Creatinine 0.85 Est GFR ( Amer) > 60 Est GFR (MDRD) Non-Af > 60 Glucose 91 Calcium 9.0 Total Bilirubin 0.4 Direct Bilirubin 0.0 Neonat Total Bilirubin Not Reportable Neonat Direct Bilirubin Not Reportable Neonat Indirect Bili Not Reportable AST 21 ALT 19 Alkaline Phosphatase 69 Creatine Kinase 76 CK-MB (CK-2) 0.67 Troponin I < 0.012 Total Protein 6.7 Albumin 4.3 Serum HCG, Qual 07/06/19 17:33 WBC RBC Hgb Hct MCV MCH MCHC RDW Plt Count Lymph % (Auto) [place] % (Auto) Eos % (Auto) Baso % (Auto) Absolute Neuts (auto) Absolute Lymphs (auto) Absolute Monos (auto) Absolute Eos (auto) Absolute Basos (auto) Seg Neutrophils % Sodium Potassium Chloride Carbon Dioxide Anion Gap BUN Creatinine Est GFR ( Amer) Est GFR (MDRD) Non-Af Glucose Calcium Total Bilirubin Direct Bilirubin Neonat Total Bilirubin Neonat Direct Bilirubin Neonat Indirect Bili AST ALT Alkaline Phosphatase Creatine Kinase CK-MB (CK-2) Troponin I Total Protein Albumin Serum HCG, Qual NEGATIVE 07/06/19 21:58 Labs unremarkable chest x-ray -2 troponins negative. Patient denies chest heaviness at this time. She was instructed on the importance of follow-up with a primary care provider for referral to record keeper. She was instructed on her risk factors to include her weight and mother's history. Patient has not had a full physical in many years. Presentation of chest pain in an otherwise well-appearing patient. Low clinical suspicion for ACS given the clinical history, exam, EKG without ST elevation or depressions, and negative troponin x2. Heart score less than or equal to 3. PE also seems unlikely given the clinical history, absence of tachycardia or dyspnea. Patient's PERC criteria is negative. Chest x-ray without evidence of pneumothorax or pneumonia. No widened mediastinum. Inferior dissection also seems unlikely given history, symmetric pulses, chest x-ray and vitals. Given the reassuring evaluation, will plan for discharge home at this time with return precautions and follow-up recommendations. Patient has been instructed to return if symptoms worsen or change in any way. HEART score-1 - Vital Signs Vital signs: Temp Pulse Resp BP Pulse Ox 98.5 F 57 L 16 155/94 H 99 07/06/19 22:40 07/06/19 22:40 07/06/19 22:40 07/06/19 22:40 07/06/19 22:40 - Laboratory Result Diagrams: 07/06/19 17:33 07/06/19 17:33 Laboratory results interpreted by me: 07/06/19 07/06/19 17:33 17:33 Hgb 11.5 L Hct 33.7 L MCV 78 L MCH 26.7 L RDW 15.2 H Potassium 3.5 L - Diagnostic Test Radiology reviewed: Image reviewed, Reports reviewed - EKG Interpretation by [facility] EKG shows normal: Sinus rhythm Rate: Normal Rhythm: NSR Additional EKG results interpreted by mi: 07/06/19 23:[address] elevation no T wave inversion Discharge - Discharge Clinical Impression: Chest pain Qualifiers: Chest pain type: unspecified Qualified Code(s): R07.9 - Chest pain, unspecified Condition: Stable Disposition: HOME, SELF-CARE Instructions: Chest Pain of Unclear Cause ([facility]), Family Physicians / Practices Additional Instructions: *You have been evaluated for chest pain of unclear cause *Follow-up with a primary care provider within 1 week. *Follow-up with a record keeper within 1 week *Return to the emergency department for return of chest pain, concerns Forms: Elevated Blood Pressure, Return to Work Referrals: DARRYL HUMMEL MD [ACTIVE STAFF] - Follow up as needed GABRIELA KELLY MD [ACTIVE STAFF] - Follow up as needed CLIFTON RAMIREZ MD [EMERITUS] - Follow up as needed
[2019-07-06 18:05] LABS: ALBUMIN 4.3 g/dL (3.5-5.0); ALKALINE PHOSPHATASE 69 U/L (38-126); ANION GAP 6 (5-19); ASPARTATE AMINO TRANSFERASE 21 U/L (14-36); BILIRUBIN,TOTAL 0.4 mg/dL (0.2-1.3); BLOOD UREA NITROGEN 15 mg/dL (7-20); CARBON DIOXIDE 29 mmol/L (22-30); CHLORIDE 104 mmol/L (98-107); CREATINE KINASE 76 U/L (30-135); GLUCOSE 91 mg/dL (75-110); POTASSIUM 3.5 mmol/L (3.6-5.0); TOTAL PROTEIN 6.7 g/dL (6.3-8.2)
[2019-07-06 18:15] LABS: CREATINE KINASE MB 0.67 ng/mL (<4.55)
[2019-07-06 18:17] LABS: TROPONIN I < 0.012 ng/mL
--- NOTE | 2019-07-06 18:22 | EKG REPORT ---
SEVERITY:- BORDERLINE ECG - SINUS RHYTHM BORDERLINE T ABNORMALITIES, ANTERIOR LEADS : Confirmed by: Debora Brooks MD 06-Jul-2019 18:21:17
[2019-07-06 22:41] VITALS: BP 155/94
--- NOTE | 2019-07-07 14:28 | EKG REPORT ---
SEVERITY:- ABNORMAL ECG - SINUS RHYTHM INCOMPLETE RBBB AND LAFB : Confirmed by: Debora Brooks MD 07-Jul-2019 14:27:13
== END 2019-07-06 22:42 | disposition home or self-care (01) ==
LOC: ER 17:05
DX: R07.9 Chest pain, unspecified (principal); R09.89 Other specified symptoms and signs involving the circulatory and respiratory systems; E66.01 Morbid (severe) obesity due to excess calories; R20.0 Anesthesia of skin; M79.652 Pain in left thigh; Z82.49 Family history of ischemic heart disease and other diseases of the circulatory system
CPT/HCPCS: 36415; 71045; 80053; 82550; 82553; 84484; 84703; 85025; 93005; 93010; 99285